=== PATIENT | male | born 1990 | race Native Hawaiian/Other Pacific Islander ===

== ENCOUNTER 2016-11-26 20:06 | Emergency (ER) | payer OTHER ==
[~2016-11-26] VITALS: Wt 99.8 kg
[~2016-11-26 20:06] MED LIST: BACTRIM DS 8001 TA1 PO; CEPHALEXIN500 M1 PO; DOXYCYCLINE HY100 M3 PO; HYDROCODONE BIT1 T11 PO; K-TAB20 MEQ PO; KEFLEX500 M1 PO; MOTRIN800 MG PO; PREDNISONE20 MG PO; SERTRALINE HYDR50 MG PO; STRATTERA100 MG PO; VIBRAMYCIN100 MG PO
[2016-11-26] MEDS ORDERED: ANTIBIOTIC O500 U/GM T (21:02)
[2016-11-26] MEDS ORDERED: KEFLEX500 M1 PO (21:02)
== END 2016-11-26 21:18 | disposition home or self-care (01) ==
LOC: ED 20:06
DX: T81.30XA Disruption of wound, unspecified, initial encounter (principal); R03.0 Elevated blood-pressure reading, without diagnosis of hypertension; F17.200 Nicotine dependence, unspecified, uncomplicated; Z79.899 Other long term (current) drug therapy

== ENCOUNTER 2017-04-15 09:46 | Emergency (ER) | payer OTHER ==
[~2017-04-15] VITALS: Wt 102.1 kg
[~2017-04-15 09:46] MED LIST changes: +ANTIBIOTIC O500 U/GM T
[2017-04-15] MEDS ORDERED: NAPROSYN500 MG PO (10:22)
== END 2017-04-15 12:05 | disposition home or self-care (01) ==
LOC: ED 09:46
DX: S62.316A Displaced fracture of base of fifth metacarpal bone, right hand, initial encounter for closed fracture (principal); R03.0 Elevated blood-pressure reading, without diagnosis of hypertension; F17.200 Nicotine dependence, unspecified, uncomplicated; Z79.899 Other long term (current) drug therapy; W23.0XXA Caught, crushed, jammed, or pinched between moving objects, initial encounter; Y93.89 Activity, other specified; Y92.89 Other specified places as the place of occurrence of the external cause; Y99.8 Other external cause status

== ENCOUNTER 2018-06-15 09:15 | Emergency (ER) | payer OTHER ==
[~2018-06-15] VITALS: Ht 167.6 cm; Wt 95.3 kg
[~2018-06-15 09:15] MED LIST changes: +NAPROSYN500 MG PO
== END 2018-06-15 11:23 | disposition home or self-care (01) ==
LOC: ED 09:15
DX: S62.396A Other fracture of fifth metacarpal bone, right hand, initial encounter for closed fracture (principal); Z79.1 Long term (current) use of non-steroidal anti-inflammatories (NSAID); Z79.899 Other long term (current) drug therapy; W20.8XXA Other cause of strike by thrown, projected or falling object, initial encounter; Y93.89 Activity, other specified; Y92.098 Other place in other non-institutional residence as the place of occurrence of the external cause; Y99.8 Other external cause status

== ENCOUNTER → 2020-08-09 | Outpatient (CLI) | payer OTHER | END | disposition home or self-care (01) | LOC: COVID19 12:37 | PROVIDERS: ATTEND Internal Medicine | DX: Z20.828 Contact with and (suspected) exposure to other viral communicable diseases (principal) ==

== ENCOUNTER 2021-04-22 15:44 | Emergency (ER) | payer OTHER ==
[~2021-04-22] VITALS: Ht 172.7 cm; Wt 95.3 kg
[2021-04-22] MEDS ORDERED: IBU800 MG PO (18:22)
== END 2021-04-22 18:43 | disposition home or self-care (01) ==
LOC: ED 15:44
DX: S42.401A Unspecified fracture of lower end of right humerus, initial encounter for closed fracture (principal); Z79.899 Other long term (current) drug therapy; W22.8XXA Striking against or struck by other objects, initial encounter; Y93.H2 Activity, gardening and landscaping; Y92.89 Other specified places as the place of occurrence of the external cause; Y99.8 Other external cause status

== ENCOUNTER → 2021-08-20 | Outpatient (CLI) | payer OTHER ==
[~2021-08-20] MED LIST changes: +IBU800 MG PO
== END | disposition home or self-care (01) ==
LOC: COVID19 16:57
PROVIDERS: ATTEND Internal Medicine
DX: U07.1 COVID-19 (principal)

== ENCOUNTER → 2024-10-11 | Outpatient (CLI) | payer OTHER ==
[2024-10-11 16:42] LABS: BASO # 0.1 10*3/uL (0.0-0.1); BASO % 1.2 % (0.0-1.0); EOS # 0.3 10*3/uL (0.0-0.4); EOS % 4.2 % (1.0-4.0); MEAN CELL VOLUME 83.3 fl (80.0-94.0); MEAN CORPUSCULAR HGB CONC 33.6 g/dl (33.0-37.0); MEAN PLATELET VOLUME 9.3 fl (9.6-12.3); MONO # 0.6 10*3/uL (0.1-1.0); MONO % 10.1 % (3.0-9.0); NEUT # 2.8 10*3/uL (2.3-7.9); NEUT % 46.5 % (47.0-73.0); PLATELET COUNT AUTOMATED 290 10*3/uL (130-400); RED CELL DISTRI WIDTH 13.2 % (0-14.5)
[2024-10-11 17:25] LABS: VITAMIN D, 25-HYDROXY 29.2 ng/mL (30-100)
[2024-10-11 17:41] LABS: ALKALINE PHOSPHATASE 67 U/L (46-116); BUN 13 mg/dl (9-23); CHLORIDE 104 mmol/L (98-107); CHOLESTEROL 145 mg/dL (<200); LDL CHOLESTEROL 75 mg/dL (9-159); POTASSIUM 4.2 mmol/L (3.4-5.1); SGPT/ALT 31 U/L (5-49); TOTAL PROTEIN 7.1 gm/dL (6.0-8.0); TRIGLYCERIDES 113 mg/dl (<150)
== END | disposition home or self-care (01) ==
LOC: LAB 16:26
PROVIDERS: ATTEND Nurse Practitioner Psychiatric/Mental Health
DX: Z51.81 Encounter for therapeutic drug level monitoring (principal); Z79.01 Long term (current) use of anticoagulants

== ENCOUNTER → 2025-03-13 | Outpatient (CLI) | payer OTHER ==
[2025-03-13 17:17] LABS: BASO # 0.1 10*3/uL (0.0-0.1); BASO % 0.9 % (0.0-1.0); EOS # 0.2 10*3/uL (0.0-0.4); EOS % 2.7 % (1.0-4.0); MEAN CELL VOLUME 82.9 fl (80.0-94.0); MEAN CORPUSCULAR HGB 27.4 pg (27.0-31.0); MEAN PLATELET VOLUME 9.7 fl (9.6-12.3); MONO # 0.8 10*3/uL (0.1-1.0); MONO % 11.1 % (3.0-9.0); NEUT # 3.6 10*3/uL (2.3-7.9); NEUT % 51.9 % (47.0-73.0); NUCLEATED RED BLOOD CELL 0.0 % (0.0-0.0); NUCLEATED RED BLOOD CELL 0.0 10*3/uL (0.0-0.0); PLATELET COUNT AUTOMATED 283 10*3/uL (130-400); RED CELL DISTRI WIDTH 14.2 % (0-14.5)
[2025-03-13 17:43] LABS: BUN 19 mg/dl (9-23); LDL CHOLESTEROL 106 mg/dL (9-159); SGPT/ALT 32 U/L (5-49)
[2025-03-13 19:31] LABS: FREE T4 1.41 ng/dl (0.89-1.76)
== END | disposition home or self-care (01) ==
LOC: LAB 15:52
PROVIDERS: ATTEND Nurse Practitioner Family
DX: I10 Essential (primary) hypertension (principal); Z13.220 Encounter for screening for lipoid disorders; Z76.89 Persons encountering health services in other specified circumstances; F10.10 Alcohol abuse, uncomplicated

== ENCOUNTER 2025-03-22 15:56 | Emergency (ER) | payer OTHER ==
[~2025-03-22] VITALS: Ht 172.7 cm; Wt 113.4 kg
[2025-03-22] MEDS ORDERED: BUSPAR15 MG PO (16:11)
[2025-03-22] MEDS ORDERED: LOSARTAN POTASS25 M1 PO (16:12)
[2025-03-22] MEDS ORDERED: 'CLONIDINE0.1 MG PO (16:12)
[2025-03-22] MEDS ORDERED: FAMOTIDINE 50 ML IV ONE (16:20)
[2025-03-22] MEDS ORDERED: SODIUM CHLORIDE 0.9% 1,000 ML IV ONE (16:20)
[2025-03-22] MEDS ORDERED: Dexamethasone Sodium Phospha 10 MG/1 ML VIAL IV ONE (16:25)
[2025-03-22] MEDS ORDERED: diphenhydrAMINE hydrochloride 50 MG/ML VIAL IV ONE (16:25)
[2025-03-22] MEDS ORDERED: PREDNISONE20 M1 PO (17:57)
== END 2025-03-22 18:37 | disposition home or self-care (01) ==
LOC: ED 15:56
DX: T63.461A Toxic effect of venom of wasps, accidental (unintentional), initial encounter (principal); R22.0 Localized swelling, mass and lump, head; Z79.899 Other long term (current) drug therapy; Y92.89 Other specified places as the place of occurrence of the external cause